=== PATIENT | male | born 1995 | race Caucasian/White ===

== ENCOUNTER 2021-02-24 23:49 | Emergency (ER) | payer SELFPAY ==
[~2021-02-24] VITALS: Ht 185.4 cm; Wt 106.1 kg
[2021-02-25 00:01] VITALS: BP 149/91
== END 2021-02-25 02:12 | disposition left against medical advice (07) ==
LOC: ER 23:54
DX: Z00.8 Encounter for other general examination (principal); L98.8 Other specified disorders of the skin and subcutaneous tissue; R47.81 Slurred speech; Z53.21 Procedure and treatment not carried out due to patient leaving prior to being seen by health care provider